=== PATIENT | female | born 1995 | race African-American/Black ===

== ENCOUNTER 2019-05-29 08:11 | Emergency (ER) | payer OTHER ==
[~2019-05-29] VITALS: Ht 167.6 cm; Wt 62.8 kg
[2019-05-29] MEDS ORDERED: MECLIZINE 12.5 MG TABLET. PO STA (08:28)
[2019-05-29] MEDS ORDERED: ONDANSETRON ODT 4 MG TAB.RAPDIS PO ONE (09:00)
[2019-05-29 09:20] VITALS: BP 116/64
[2019-05-29 09:57] LABS: BACTERIA,URINE FEW /HPF (0-FEW); BILIRUBIN,URINE NEG (NEG); CLARITY,URINE HAZY; COLOR,URINE YELLOW; GLUCOSE,URINE NEG (NEG); NITRITE,URINE NEG (NEG); RBC,URINE RARE /HPF (0-2); SQUAMOUS EPITHELIAL CELL,UR MANY /LPF; UROBILINOGEN,URINE 0.2 mg/dL (0.2 mg/dL)
[2019-05-29] MEDS ORDERED: MECL-75 PO (10:04)
--- NOTE | 2019-05-29 10:13 | PHYS DOC ---
Past History Past Medical History: No Pertinent History Past Surgical History: No Surgical History Alcohol Use: None Adult General Chief Complaint Chief Complaint: DIZZY/LIGHT HEADED HPI HPI Patient is a 23-year-old female presenting with dizziness. Woke up with it this morning coming a little bit dizzier when she turns her head a certain way to mild nausea no diplopiaproblem no numbness tingling or weakness. No fever no vomiting no mild headache really one has to about that she socially more like she was lightheaded. No recent URI symptoms no past medical history no daily medications last menstrual period was mid April she says they are normal she does not have heavy periods. Review of Systems Review of Systems Constitutional: Denies fever or chills [] Eyes: Denies change in visual acuity, redness, or eye pain [] HENT: Denies nasal congestion or sore throat [] Respiratory: Denies cough or shortness of breath [] Cardiovascular: No additional information not addressed in HPI [] GI: Denies abdominal pain, nausea, vomiting, bloody stools or diarrhea [] : Denies dysuria or hematuria [] All other systems were reviewed and found to be within normal limits, except as documented in this note. Current Medications Current Medications Current Medications Medications (Trade) Dose Ordered Sig/Shaun Start Time Stop Time Status Last Admin Dose Admin Meclizine HCl (Antivert) 25 mg 1X STAT 05/29/19 08:28 05/29/19 08:30 DC 05/29/19 08:40 25 MG Ondansetron HCl (Zofran Odt) 4 mg 1X ONCE 05/29/19 09:00 05/29/19 09:01 DC 05/29/19 08:40 4 MG Allergies Allergies Allergies Coded Allergies Type Severity Reaction Last Updated Verified No Known Drug Allergies 05/29/19 No Physical Exam Physical Exam Constitutional: Well developed, well nourished, no acute distress, non-toxic appearance. [] HENT: Normocephalic, atraumatic, bilateral external ears normal, oropharynx moist, no oral exudates, nose normal. []TMs are clear Eyes: PERRLA, EOMI, conjunctiva normal, no discharge. [] Neck: Normal range of motion, no tenderness, supple, no stridor. [] Cardiovascular:Heart rate regular rhythm, no murmur [] Lungs & Thorax: Bilateral breath sounds clear to auscultation [] Abdomen: Bowel sounds normal, soft, no tenderness, no masses, no pulsatile masses. [] Skin: Warm, dry, no erythema, no rash. [] Extremities: No tenderness, no cyanosis, no clubbing, ROM intact, no edema. [] Neurologic: Alert and oriented X 3, normal motor function, normal sensory function, no focal deficits noted. [][id number] intact bilaterally extraocular movements are intact cranial nerves are intact gait is normal speech is normal Psychologic: Affect normal, judgement normal, mood normal. [] Current Patient Data Vital Signs Vital Signs Date Time Temp Pulse Resp B/P (MAP) Pulse Ox O2 Delivery O2 Flow Rate FiO2 05/29/19 08:18 99.0 90 16 127/68 (87) 100 Room Air Lab Results Laboratory Tests Test 05/29/19 08:42 05/29/19 09:18 05/29/19 09:26 Glucose (Fingerstick) 88 mg/dL (70-99) Urine Collection Type Unknown Urine Color Yellow Urine Clarity Hazy Urine pH 5.5 Urine Specific [place] 1.025 Urine Protein Neg (NEG-TRACE) Urine Glucose (UA) Neg mg/dL (NEG) Urine Ketones (Stick) Neg mg/dL (NEG) Urine Blood Neg (NEG) Urine Nitrite Neg (NEG) Urine Bilirubin Neg (NEG) Urine Urobilinogen Dipstick 0.2 mg/dL (0.2 mg/dL) Urine Leukocyte Esterase Neg (NEG) Urine RBC Rare /HPF (0-2) Urine WBC 1-4 /HPF (0-4) Urine Squamous Epithelial Cells Many /LPF Urine Bacteria Few /HPF (0-FEW) Urine Mucus Mod /LPF POC Urine HCG, Qualitative hcg negative (Negative) EKG EKG [] Radiology/Procedures Radiology/Procedures [] Course & Med Decision Making Course & Med Decision Making Pertinent Labs and Imaging studies reviewed. (See chart for details) []Blood sugar UA and urine are all reasonable. Vital signs are stable. This is a 23-year-old neurologically intact female with dizziness likely vertigo by history and exam reassurance provided patient felt better with meclizine. Dragon Disclaimer Dragon Disclaimer This electronic medical record was generated, in whole or in part, using a voice recognition dictation system. Departure Departure: Impression: Primary Impression: Vertigo Disposition: 01 HOME, SELF-CARE Condition: STABLE Patient Instructions: Vertigo, [id number] Scripts Meclizine Hcl (MECLIZINE HCL) 25 Mg Tablet 1 TAB PO TID PRN for dizziness, #25 TAB Prov: YVONNE BALL MD 05/29/19 YVONNE BALL MD May 29, 2019 10:13
== END 2019-05-29 10:09 | disposition home or self-care (01) ==
LOC: ER 08:11
DX: R42 Dizziness and giddiness (principal)
CPT/HCPCS: 81001; 81025; 82947; 99283; J8597; Q0162